=== PATIENT | female | born 1995 | race Asian ===

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

== ENCOUNTER 2017-09-10 15:13 | Emergency (ER) | payer OTHER ==
[~2017-09-10] VITALS: Ht 167.6 cm; Wt 122.5 kg
[2017-09-10 15:15] VITALS: BP 142/65; TEMP 98.7
== END 2017-09-10 16:15 | disposition home or self-care (01) ==
LOC: ED 15:13
DX: R51 Headache (principal); R11.10 Vomiting, unspecified
CPT/HCPCS: 99281

== ENCOUNTER 2018-11-09 03:55 | Emergency (ER) | payer OTHER ==
[~2018-11-09] VITALS: Ht 162.6 cm; Wt 113.4 kg
[2018-11-09 04:27] VITALS: BP 141/86; TEMP 98.5
== END 2018-11-09 04:28 | disposition home or self-care (01) ==
LOC: ED 03:55
DX: L03.113 Cellulitis of right upper limb (principal)
CPT/HCPCS: 99282

== ENCOUNTER 2018-12-10 02:49 | Emergency (ER) | payer OTHER ==
[~2018-12-10] VITALS: Ht 162.6 cm; Wt 120.7 kg
[2018-12-10 03:54] VITALS: BP 138/82; TEMP 97.7
== END 2018-12-10 03:54 | disposition home or self-care (01) ==
LOC: ED 02:49
DX: K08.89 Other specified disorders of teeth and supporting structures (principal); K02.9 Dental caries, unspecified; F17.210 Nicotine dependence, cigarettes, uncomplicated
CPT/HCPCS: 92977; 96372; 99283; J0696; J1885

== ENCOUNTER 2018-12-27 23:09 | Emergency (ER) | payer OTHER ==
[~2018-12-27] VITALS: Ht 170.2 cm; Wt 122.5 kg
[2018-12-28 00:45] VITALS: BP 128/79; TEMP 98.7
== END 2018-12-28 00:45 | disposition home or self-care (01) ==
LOC: ED 23:09
DX: K08.89 Other specified disorders of teeth and supporting structures (principal); F17.210 Nicotine dependence, cigarettes, uncomplicated
CPT/HCPCS: 99283

== ENCOUNTER 2019-01-01 12:55 | Emergency (ER) | payer OTHER ==
[~2019-01-01] VITALS: Ht 170.2 cm; Wt 119.7 kg
[2019-01-01 12:58] VITALS: BP 155/94; TEMP 97.8
== END 2019-01-01 14:34 | disposition home or self-care (01) ==
LOC: ED 12:55
DX: K08.89 Other specified disorders of teeth and supporting structures (principal); K04.7 Periapical abscess without sinus; B37.89 Other sites of candidiasis
CPT/HCPCS: 96372; 99283; J1885

== ENCOUNTER 2019-01-04 03:25 | Outpatient (CLI) | payer OTHER | END 2019-01-04 21:43 | disposition home or self-care (01) | LOC: RAD 03:25 | DX: M25.562 Pain in left knee (principal) ==

== ENCOUNTER 2019-01-16 00:47 | Emergency (ER) | payer OTHER ==
[~2019-01-16] VITALS: Ht 170.2 cm; Wt 120.7 kg
[2019-01-16 02:00] LABS: POTASSIUM 3.5 mmol/L (3.6-5.2)
[2019-01-16 02:02] LABS: PLATELET COUNT 208 K/uL (152-353)
[2019-01-16 03:10] VITALS: BP 164/107; TEMP 97.5
== END 2019-01-16 03:10 | disposition home or self-care (01) ==
LOC: ED 00:47
PROVIDERS: Emergency Medicine
DX: Z20.6 Contact with and (suspected) exposure to human immunodeficiency virus [HIV] (principal); D64.9 Anemia, unspecified; S50.811A Abrasion of right forearm, initial encounter; W50.4XXA Accidental scratch by another person, initial encounter; Y92.239 Unspecified place in hospital as the place of occurrence of the external cause
CPT/HCPCS: 36415; 80053; 81025; 85027; 86803; 87517; 87535; 90471; 90715; 96372; 99283

== ENCOUNTER 2019-11-11 13:27 | Emergency (ER) | payer OTHER ==
[~2019-11-11] VITALS: Ht 167.6 cm; Wt 122.5 kg
[2019-11-11 13:27] VITALS: TEMP 98.9
[2019-11-11] MEDS ORDERED: IBU600 MG PO (13:44)
[2019-11-11] MEDS ORDERED: CVS OMEPRAZOLE20 MG PO (13:45)
[2019-11-11] MEDS ORDERED: IRON325 MG PO (13:46)
[2019-11-11 14:42] LABS: PLATELET COUNT 211 K/uL (152-353)
[2019-11-11 14:51] LABS: POTASSIUM 3.8 mmol/L (3.6-5.2); SODIUM 140 mmol/L (136-145)
[2019-11-11 17:30] VITALS: BP 130/83
== END 2019-11-11 17:41 | disposition home or self-care (01) ==
LOC: ED 13:39
PROVIDERS: General Practice
DX: R07.89 Other chest pain (principal)
CPT/HCPCS: 80053; 81000; 81025; 83605; 83690; 83735; 84484; 85027; 93005; 96360; 96375; 99284; J1885; J2405

== ENCOUNTER 2020-05-20 11:19 | Outpatient (CLI) | payer OTHER ==
[~2020-05-20 11:19] MED LIST changes: +CVS OMEPRAZOLE20 MG PO; +IBU600 MG PO; +IRON325 MG PO
== END 2020-05-20 19:39 | disposition home or self-care (01) ==
LOC: LAB 11:19
PROVIDERS: ATTEND Nurse Practitioner Family
DX: R43.0 Anosmia (principal); R43.2 Parageusia